=== PATIENT | female | born 1945 | race Caucasian/White ===

== ENCOUNTER 2016-11-25 18:55 | Inpatient (IN) | payer MEDICARE, OTHER ==
[2016-11-26 05:37] LABS: HCT 27.1 % (37.0-47.0); HGB 9.3 g/dl (12.5-16.0); MCH 30.1 pg (25.0-31.0); MCHC 34.3 g/dL (32.0-36.0); MCV 87.7 fL (78.0-100.0); MPV 9.8 fL (6.0-9.5); RBC 3.09 M/uL (4.20-5.40)
[2016-11-26 05:46] LABS: INR 1.1 (0.9-1.2); PROTHROMBIN TIME 13.8 SECONDS (11.7-14.0)
[2016-11-26 05:47] LABS: PTT 26.1 SECONDS (23.2-31.4)
[2016-11-26 05:58] LABS: ALBUMIN 3.2 g/dL (3.4-4.8); BILIRUBIN - TOTAL 0.4 mg/dL (0.1-1.0); CREATININE 0.9 mg/dL (0.5-1.0); GLOBULIN (CALCULATION) 1.8 g/dL (2.2-4.2); MAGNESIUM 1.68 mg/dL (1.40-2.10); POTASSIUM 4.1 mmol/L (3.5-5.1)
[2016-11-29 09:32] LABS: BILIRUBIN NEGATIVE (NEGATIVE); BLOOD TRACE-INTACT Ery/uL (NEGATIVE); CLARITY CLEAR (CLEAR); COLOR YELLOW (YELLOW); GLUCOSE (U) NORMAL (NORMAL); KETONE (U) NEGATIVE (NEGATIVE); LEUKOCYTES 3+ Leu/uL (NEGATIVE); NITRITE NEGATIVE (NEGATIVE); PROTEIN NEGATIVE (NEGATIVE)
[2016-11-29 09:39] LABS: BACTERIA 3+; URINARY WBC TNTC
[2016-11-29 09:40] LABS: SQUAMOUS EPITHELIAL CELLS RARE; URINARY RBC 20-50
--- NOTE | 2016-12-05 10:13 | NUR ---
71 YEAR OLD FEMALE DC HOME WITH DAUGHTER, S/P LOWER BACK SURGERY, A/O X3 WENT OVER DC INSTRUCTIONS, R/V UNDERSTANDING
[2016-12-05] MEDS ORDERED: CIPRO500 MG PO (15:09)
[2016-12-05] MEDS ORDERED: PREDNISONE 10MG10 MG PO (15:10)
[2016-12-05] MEDS ORDERED: LIPITOR 10MG TA10 MG PO (15:11)
[2016-12-05] MEDS ORDERED: TOPROL XL 50 MG50 MG PO (15:11)
[2016-12-05] MEDS ORDERED: CO Q-10100 MG PO (15:12)
[2016-12-05] MEDS ORDERED: GUAIFENESIN PO (15:12)
[2016-12-05] MEDS ORDERED: VITAMIN E400 UNI1 PO (15:13)
[2016-12-05] MEDS ORDERED: MAGNESIUM CITR100 MG PO (15:13)
[2016-12-05] MEDS ORDERED: ASCORBIC ACID500 MG PO (15:14)
[2016-12-05] MEDS ORDERED: VICODIN 10/3251 EACH PO (15:14)
[2016-12-05] MEDS ORDERED: NEXIUM40 MG PO (15:14)
[2016-12-05] MEDS ORDERED: CERTAGEN1 EACH PO (15:15)
[2016-12-05] MEDS ORDERED: NEURONTIN400 MG PO (15:15)
[2016-12-05] MEDS ORDERED: OSTEO BI-FLEX1 EAC1 PO (15:15)
[2016-12-05] MEDS ORDERED: FLEXERIL10 MG PO (15:16)
[2016-12-05] MEDS ORDERED: VITAMIN D1000 UNI1 PO (15:17)
[2016-12-05] MEDS ORDERED: VITAMIN B COMP1 EACH PO (15:17)
[2016-12-05] MEDS ORDERED: XYZAL5 MG PO (15:21)
[2016-12-05] MEDS ORDERED: LASIX40 MG PO (15:21)
[2016-12-05] MEDS ORDERED: IMODIUM A-D2 MG PO (15:21)
== END 2016-12-05 10:14 | disposition home health service (06) | DRG 949 ==
LOC: FSNU 18:55
PROVIDERS: Internal Medicine; ADMIT Internal Medicine
DX: Z48.89 Encounter for other specified surgical aftercare (principal); N39.0 Urinary tract infection, site not specified; B96.1 Klebsiella pneumoniae [K. pneumoniae] as the cause of diseases classified elsewhere; I10 Essential (primary) hypertension; E78.5 Hyperlipidemia, unspecified; K21.9 Gastro-esophageal reflux disease without esophagitis; E66.9 Obesity, unspecified; Z90.5 Acquired absence of kidney; R91.1 Solitary pulmonary nodule; Z79.899 Other long term (current) drug therapy; Z68.32 Body mass index [BMI] 32.0-32.9, adult
CPT/HCPCS: 36415; 71020; 80053; 81001; 83735; 84100; 85610; 85730; 87076; 87088; 87186; 97110; 97116; 97162; 97167; 97530; 97530-GP; 97535

== ENCOUNTER 2021-04-18 14:40 | Emergency (ER) | payer MEDICARE, OTHER ==
[~2021-04-18 14:40] MED LIST: ALLEGRA ALLERG180 MG PO; ASCORBIC ACID500 MG PO; ASPIRIN EC81 MG PO; BENTYL10 MG PO; CERTAGEN1 EACH PO; CIPRO500 MG PO; CO Q-10100 MG PO; COREG12.5 MG PO; DULOXETINE HCL20 MG PO; FLEXERIL10 MG PO; FLONASE ALLER15.8 ML; GABAPENTIN400 MG PO; GUAIFENESIN PO; HCTZ12.5 MG PO; HYDROCODON-ACE1 EAC6 PO; IMODIUM A-D2 MG PO; IRON325 M1 PO; LASIX40 MG PO; LIPITOR 10MG TA10 MG PO; MAGNESIUM CITR100 MG PO; MEDROL 4MG DOSEP4 MG PO; NEURONTIN400 MG PO; NEXIUM40 MG PO; NORCO 5-325 TA1 EAC1 PO; NORCO 5-325 TA1 EACH PO; NORVASC5 MG PO; OSTEO BI-FLEX1 EAC1 PO; PREDNISONE 10MG10 MG PO; PROTONIX 40MG T40 MG PO; SUDAFED30 MG PO; TAGAMET HB200 MG PO; TOPROL XL 50 MG50 MG PO; VICODIN 10/3251 EACH PO; VITAMIN B COMP1 EACH PO; VITAMIN D1000 UNI1 PO; VITAMIN E400 UNI1 PO; XYZAL5 MG PO; ZOLOFT50 MG PO
[2021-04-18 20:10] LABS: BASOPHIL 0.3 % (0-2); EOSINOPHIL 0.9 % (0-7); HCT 32.7 % (37.0-47.0); HGB 11.2 g/dl (12.5-16.0); LYMPHOCYTE 21.2 % (15-48); MCH 31.4 pg (25.0-31.0); MCHC 34.3 g/dL (32.0-36.0); MCV 91.6 fL (78.0-100.0); MONOCYTE 8.8 % (0-12); MPV 9.6 fL (6.0-9.5); NEUTROPHIL 68.5 % (41-80); NRBC 0; PLT 172 K/uL (150-400); RBC 3.57 M/uL (4.20-5.40); RDW 12.7 % (11.5-14.0); WBC 7.9 K/uL (4.0-10.5)
[2021-04-18 20:25] LABS: ALBUMIN 3.4 g/dL (3.4-5.0); BILIRUBIN - TOTAL 0.4 mg/dL (0.2-1.0); BUN/CREAT RATIO (CALC) 18.8 RATIO; CREATININE 0.85 mg/dL (0.51-0.95); GLOBULIN (CALCULATION) 2.7 g/dL; POTASSIUM 3.6 mmol/L (3.5-5.1); TOTAL PROTEIN 6.1 g/dL (6.4-8.2)
[2021-04-18 21:07] LABS: BILIRUBIN NEGATIVE (NEGATIVE); BLOOD NEGATIVE Ery/uL (NEGATIVE); CLARITY CLEAR (CLEAR); COLOR YELLOW (YELLOW); GLUCOSE (U) NORMAL (NORMAL); LEUKOCYTES 3+ Leu/uL (NEGATIVE); NITRITE NEGATIVE (NEGATIVE); PROTEIN NEGATIVE (NEGATIVE); SPECIFIC GRAVITY <=1.005 (1.001-1.030); UROBILINOGEN 0.2 mg/dL (0.2-1.0)
[2021-04-18 21:13] LABS: BACTERIA 1+
== END 2021-04-19 | disposition home or self-care (01) ==
LOC: FER 14:40
PROVIDERS: Emergency Medicine Emergency Medical Services
DX: S01.01XA Laceration without foreign body of scalp, initial encounter (principal); S51.011A Laceration without foreign body of right elbow, initial encounter; S81.011A Laceration without foreign body, right knee, initial encounter; I10 Essential (primary) hypertension; E78.5 Hyperlipidemia, unspecified; Z88.2 Allergy status to sulfonamides; Z88.8 Allergy status to other drugs, medicaments and biological substances; W19.XXXA Unspecified fall, initial encounter; Y92.009 Unspecified place in unspecified non-institutional (private) residence as the place of occurrence of the external cause
CPT/HCPCS: 36415; 70450; 73110; 73560; 80053; 81001; 84484; 85025; 87088; 93005

== ENCOUNTER 2021-11-11 14:40 | Day surgery (SDCO) | payer MEDICARE, OTHER ==
[~2021-11-11] VITALS: Ht 165.1 cm; Wt 97.8 kg
[~2021-11-11 14:40] MED LIST changes: +NORCO 5/3251 EACH PO; +OXYCODONE-ACET1 EACH PO; +TIZANIDINE HCL2 MG PO
[2021-11-11] MEDS ORDERED: OXYCODONE-ACET1 EACH PO (15:47)
[2021-11-11 18:21] LABS: BILIRUBIN NEGATIVE (NEGATIVE); BLOOD NEGATIVE Ery/uL (NEGATIVE); CLARITY CLEAR (CLEAR); COLOR YELLOW (YELLOW); GLUCOSE (U) NORMAL (NORMAL); LEUKOCYTES TRACE Leu/uL (NEGATIVE); NITRITE NEGATIVE (NEGATIVE); PROTEIN NEGATIVE (NEGATIVE); UROBILINOGEN 0.2 mg/dL (0.2-1.0)
[2021-11-11 18:29] LABS: BASOPHIL 0.3 % (0-2); EOSINOPHIL 6.5 % (0-7); HCT 33.4 % (37.0-47.0); HGB 10.6 g/dl (12.5-16.0); LYMPHOCYTE 24.5 % (15-48); MCHC 31.7 g/dL (32.0-36.0); MCV 91.5 fL (78.0-100.0); MONOCYTE 12.3 % (0-12); MPV 10.3 fL (6.0-9.5); NEUTROPHIL 55.9 % (41-80); NRBC 0; PLT 206 K/uL (150-400); RBC 3.65 M/uL (4.20-5.40); RDW 13.4 % (11.5-14.0); WBC 6.3 K/uL (4.0-10.5)
[2021-11-11 18:32] LABS: BACTERIA TRACE; URINARY RBC RARE
[2021-11-11 18:48] LABS: BILIRUBIN - TOTAL 0.3 mg/dL (0.2-1.0); BUN/CREAT RATIO (CALC) 8.5 RATIO; CREATININE 0.94 mg/dL (0.51-0.95); GLOBULIN (CALCULATION) 3.1 g/dL; POTASSIUM 4.3 mmol/L (3.5-5.1); TOTAL PROTEIN 6.1 g/dL (6.4-8.2)
[2021-11-11] MEDS ORDERED: NEXIUM20 MG PO (20:53)
[2021-11-11] MEDS ORDERED: CRESTOR5 MG PO (20:54)
[2021-11-11] MEDS ORDERED: ZOLOFT50 MG PO (20:54)
[2021-11-11] MEDS ORDERED: LEVSIN0.125 MG PO (20:56)
[2021-11-11] MEDS ORDERED: BENTYL10 MG PO (20:56)
[2021-11-11] MEDS ORDERED: ZYRTEC10 M3 PO (21:07)
[2021-11-11] MEDS ORDERED: PERCOCET 10-321 EACH PO (21:08)
[2021-11-11] MEDS ORDERED: ACETAMINOPHEN500 M1 PO (21:09)
[2021-11-11] MEDS ORDERED: CRANBERRY500 M3 PO (21:10)
[2021-11-11] MEDS ORDERED: IMODIUM2 MG PO (21:12)
[2021-11-11] MEDS ORDERED: LASIX20 MG PO (21:14)
[2021-11-11] MEDS ORDERED: MELATONIN5 M2 PO (21:15)
[2021-11-11] MEDS ORDERED: DAILY VITAMIN1 EAC2 PO (21:17)
[2021-11-12 05:58] LABS: BASOPHIL 0.4 % (0-2); EOSINOPHIL 5.8 % (0-7); HCT 29.7 % (37.0-47.0); HGB 9.8 g/dl (12.5-16.0); LYMPHOCYTE 23.5 % (15-48); MCH 29.7 pg (25.0-31.0); MONOCYTE 14.1 % (0-12); MPV 10.4 fL (6.0-9.5); NEUTROPHIL 55.7 % (41-80); NRBC 0; PLT 198 K/uL (150-400); RDW 13.4 % (11.5-14.0); WBC 5.7 K/uL (4.0-10.5)
[2021-11-12 06:26] LABS: IRON % SATURATION 19.6 %SAT (20-50)
[2021-11-12 07:01] LABS: CREATININE 0.83 mg/dL (0.51-0.95); POTASSIUM 4.1 mmol/L (3.5-5.1)
[2021-11-13] MEDS ORDERED: OXYCODONE-ACET1 EACH PO (12:56)
[2021-11-13] MEDS ORDERED: LOVENOX40 MG/0.4 SC (12:56)
[2021-11-13] MEDS ORDERED: FEOSOL325 MG PO (13:01)
== END 2021-11-13 16:34 ==
LOC: FER 14:40 → FMS 19:22
PROVIDERS: Emergency Medicine; Nurse Practitioner Acute Care; ADMIT Internal Medicine
DX: S22.079A Unspecified fracture of T9-T10 vertebra, initial encounter for closed fracture (principal); S22.089A Unspecified fracture of T11-T12 vertebra, initial encounter for closed fracture; W19.XXXA Unspecified fall, initial encounter; Y92.129 Unspecified place in nursing home as the place of occurrence of the external cause; R29.6 Repeated falls; G89.29 Other chronic pain; I13.0 Hypertensive heart and chronic kidney disease with heart failure and stage 1 through stage 4 chronic kidney disease, or unspecified chronic kidney disease; I50.33 Acute on chronic diastolic (congestive) heart failure; N18.30 Chronic kidney disease, stage 3 unspecified; D63.1 Anemia in chronic kidney disease; E87.1 Hypo-osmolality and hyponatremia; M87.88 Other osteonecrosis, other site; G57.93 Unspecified mononeuropathy of bilateral lower limbs; K58.2 Mixed irritable bowel syndrome; Z91.81 History of falling; Z20.822 Contact with and (suspected) exposure to COVID-19; Z79.899 Other long term (current) drug therapy
CPT/HCPCS: 36415; 71046; 71250; 72131; 72146; 72148; 80048; 80053; 81001; 82607; 82728; 83540; 83550; 83880; 84484; 85025; 93005; 94010; 94760; 97162; 97166; 97530; 97530-GP; G0378; J1170; J1650; J1940; J2270; U0002